=== PATIENT | female | born 1980 | race Caucasian/White ===

== ENCOUNTER 2016-05-30 12:13 | Emergency (ER) | payer MEDICAID ==
[~2016-05-30] VITALS: Ht 157.5 cm; Wt 67.7 kg
[~2016-05-30 12:13] MED LIST: BAC30OI TOP; BACTDS PO; CIPR500T4 PO; HYDR-906 PO; MECL25TA2 PO; NAPR-260 PO; ONDA4TAB14 PO; PHEN-537 PO
[2016-05-30 12:19] VITALS: Ht 157.5 cm; Wt 67.7 kg
[2016-05-30] MEDS ORDERED: ONDANSETRON (ODT) 4 MG TAB ODT STA (13:23)
[2016-05-30] MEDS ORDERED: ACETAMINOPHEN 500 MG TAB PO STA (13:23)
[2016-05-30] MEDS ORDERED: MECLIZINE 12.5 MG TAB PO ONE (13:30)
--- NOTE | 2016-05-30 14:25 | ERD ---
ER Documentation Chief Complaint Date/Time DATE: 05/30/16 TIME: 14:24 Chief Complaint recurrent vertigo, dizziness and nausea HPI Patient is a 35-year-old female who presents to the ED with recurrent vertigo, dizziness, nausea. She states that everytime she moves her head she "feels the room spinning." This has been going on on and off for 1 week. She states she has had this in the past, 6 months ago. She denies taking any new medications or prescription medication. She states that this is "exactly what she has had in the past." She states that she is not taking any medication for her symptoms as she ran out of her meclizine from before. She denies headache. She denies abdominal pain, diarrhea or constipation. She does state that she has nauseous but with no vomiting. Denies blurry vision. Denies neck pain or stiffness. Denies leg pain or swelling. ROS All systems reviewed and are negative except as per history of present illness. Medications Home Meds Active Scripts Ondansetron Hcl* (Zofran*) 4 Mg Tablet, 4 MG PO Q6H for NAUSEA AND/OR VOMITING, #30 TAB Prov:LAYO ROCKWELL PA-C 05/30/16 Meclizine Hcl* (Antivert*) 12.5 Mg Tab, 12.5 MG PO Q6H Y for DIZZINESS, #20 TAB Prov:LAYO ROCKWELL PA-C 05/30/16 Ondansetron (Ondansetron Odt) 4 Mg Tab.rapdis, 4 MG PO Q6H Y for NAUSEA AND/OR VOMITING, #6 TAB Prov:MINH SHANKAR DO 11/17/15 Naproxen* (Naprosyn*) 500 Mg Tablet, 500 MG PO BID Y for PAIN AND/OR INFLAMMATION, #12 TAB Prov:MINH SHANKAR DO 11/17/15 Hydrocodone/Acetaminophen ([place] 5-325 Tablet) 1 Each Tablet, 1 TAB PO Q6H Y for PAIN, #7 TAB Prov:MINH SHANKAR DO 11/17/15 Meclizine Hcl* (Antivert*) 25 Mg Tablet, 25 MG PO Q6H Y for DIZZINESS, #20 TAB Prov:MINH SHANKAR DO 11/17/15 Ciprofloxacin Hcl* (Ciprofloxacin Hcl*) 500 Mg Tablet, 500 MG PO BID, #6 TAB Prov:JENNIFER BISWAS DO 12/09/14 Phenazopyridine Hcl* (Pyridium*) 100 Mg Tab, 100 MG PO TID, #9 TAB Prov:JENNIFER BISWAS DO 12/09/14 Sulfamethoxazole-Trimethoprim* (Bactrim* DS) 800-160 Mg Tab, 1 TAB PO BID for 5 Days, TAB Prov:DRAKE COREA PA-C 11/21/14 Bacitracin* (Bacitracin Zinc Oint*) 28.35 Gm Oint, 1 APPLIC TOP BID, #1 TUB APPLI TO Prov:ESTHELA BRAR PA-C 09/21/14 Sulfamethoxazole-Trimethoprim* (Bactrim* DS) 800-160 Mg Tab, 1 TAB PO BID for 10 Days, TAB Prov:ESTHELA BRAR PA-C 09/21/14 Allergies Allergies: Coded Allergies: Penicillins (Unverified Allergy, Unknown, 05/30/16) PMhx/Soc History of Surgery: Yes (C section x2) Anesthesia Reaction: No Hx Neurological Disorder: No Hx Respiratory Disorders: No Hx Cardiac Disorders: No Hx Psychiatric Problems: No Hx Miscellaneous Medical Probl: Yes (Vertigo) Hx Alcohol Use: No Hx Substance Use: No Hx Tobacco Use: No Smoking Status: Never smoker FmHx Family History: No coronary disease, No diabetes, No other Physical Exam Vitals Vital Signs Date Time Temp Pulse Resp B/P Pulse Ox O2 Delivery O2 Flow Rate FiO2 05/30/16 15:50 98.3 61 18 124/71 100 Room Air 05/30/16 12:19 98.1 58 20 130/75 99 Physical Exam GENERAL: Well-developed, well-nourished female. Appears in no acute distress. HEAD: Normocephalic, atraumatic. EYES: Pupils are equally reactive bilaterally. EOMs grossly intact. No conjunctival erythema. No nystagmus. ENT: Moist mucous membranes. No uvula deviation. No kissing tonsils. No exudates. Bilateral TMs are nonerythematous, nonbulging. No mastoid tenderness NECK: Supple. No lymphadenopathy or thyromegaly. No meningismus. negative kernig. negative brudinski. LUNG: Clear to auscultation bilaterally. No rhonchi, wheezing, rales or coarse breath sounds. HEART: Regular rate and rhythm. No murmurs, rubs or gallops. NEUROLOGIC: Alert and oriented. Moving all four extremities. 5/5 strength in all extremities. Normal speech. Steady gait. Cranial nerves II through XII intact. Negative Romberg test. No ataxia. SKIN: Normal color. Warm and dry. No rashes or lesions. Capillary refill < 2 seconds Results 24 hrs Current Medications Medications (Trade) Dose Ordered Sig/Jesusita Route PRN Reason Start Time Stop Time Status Last Admin Dose Admin Ondansetron HCl (Zofran Odt) 4 mg ONCE STAT ODT 05/30/16 13:23 05/30/16 13:25 DC 05/30/16 13:34 Meclizine HCl (Antivert) 12.5 mg ONCE ONCE PO 05/30/16 13:30 05/30/16 13:31 DC 05/30/16 13:34 Acetaminophen (Tylenol Tab) 1,000 mg ONCE STAT PO 05/30/16 13:23 05/30/16 13:25 DC 05/30/16 13:34 Procedures/MDM ER COURSE: I kept the patient and/or family informed of laboratory and diagnostic imaging results throughout the emergency room course. MEDICATIONS Meclizine, Zofran, Motrin. Patient stated no adverse reaction and mild improvement in symptoms. PROCEDURES Ninfa maneuver. Patient stated mild improvement in symptoms. MEDICAL DECISION MAKING: This is a 35-year-old female who presents with dizziness. Vital signs were reviewed. Patient is afebrile. Patient is not hypoxic. Patient is not toxic or ill-appearing. Patient likely has benign positional vertigo as her symptoms are reproduced on examination and using the Ninfa maneuver. Patient states that this is exactly the same symptoms that she has had in the past. Denies any new trauma or triggering factor. I do not think a CT scan is warranted at this time as this is not a new onset situation. Her cranial nerves II through XII are intact bilaterally. After performing the Ninfa maneuver in the ER, patient stated mild improvement in symptoms. Low suspicion for intracranial hemorrhage, meningitis, intracranial mass, concussion, temporal arteritis, stroke, elevated intracranial pressure, seizure. Other diagnosis includes but is not limited to acoustic neuroma, Mnire's disease, labyrinthitis, benign positional vertigo. DISCHARGE: At this time, patient is stable for discharge and outpatient management with no new complaints during the ER course. Patient was sent home with meclizine, Zofran and instructions to do the Ninfa maneuver at home.. Patient will be discharged home with instructions to recheck for new or worsening symptoms such as fever, nausea, weakness, LOC and to follow up with primary care in the next 1 -2 days. Patient was advised to return to the ER for any new or worsening symptoms. Plan was discussed and patient and/or family understands and agrees. Home instructions were given. Departure Diagnosis: Primary Impression: Dizziness Condition: Stable LAYO ROCKWELL PA-C May 30, 2016 14:25
[2016-05-30] MEDS ORDERED: MECL12.574 PO (15:44)
[2016-05-30] MEDS ORDERED: ONDA4TAB8 PO (15:44)
[2016-05-30 15:50] VITALS: BP 124/71; PULSE 61; RESP 18; TEMP 98.3
== END 2016-05-30 15:50 | disposition home or self-care (01) ==
LOC: FTE 12:13
DX: R42 Dizziness and giddiness (principal); R11.0 Nausea
CPT/HCPCS: Z7610 ×3; 99283

== ENCOUNTER 2017-04-21 09:51 | Emergency (ER) | END 2017-04-21 11:10 | disposition home or self-care (01) ==

== ENCOUNTER 2017-05-24 11:12 | Inpatient (IN) | END 2017-05-27 17:45 | disposition home or self-care (01) | DRG 766 ==

== ENCOUNTER 2018-09-03 22:49 | Emergency (ER) | payer MEDICAID, OTHER ==
[~2018-09-03] VITALS: Ht 152.4 cm; Wt 65.4 kg
[~2018-09-03 22:49] MED LIST changes: +ACET500C5 PO; -BAC30OI TOP; -BACTDS PO; -CIPR500T4 PO; -HYDR-906 PO; +IBUP-1544 PO; -MECL25TA2 PO; -NAPR-260 PO; -ONDA4TAB14 PO; -PHEN-537 PO
[2018-09-03 22:52] VITALS: Ht 152.4 cm; Wt 65.4 kg
--- NOTE | 2018-09-03 23:05 | ERD ---
ER Documentation Chief Complaint Chief Complaint cough x 1 week HPI This is a 38-year-old female presents here in the emergency department with complaints of sore throat, productive cough. Stated that there is sore throat is about a week. Stated that her productive cough is about 3 days. LMP: Stated that was a week ago. G6, . Denies headache, head injury, loss of consciousness, dizziness, neck pain, neck stiffness, throat pain, difficulty swallowing, difficulty breathing lying flat, shoulder pain, chest pain, back pain, abdominal pain, nausea, vomiting, c onstipation, diarrhea, urinary symptoms, or possibility being , loss of bowel and bladder control, trauma, injury, falls, difficulty walking due to pain, numbness or tingling sensation, calf pain, recent travel, recent major surgery in the last 3 weeks, calf pain, recent long travel, recent exposure to any illness, recent antibiotic use in the last 3 months, fever, chills, seizures. Past medical history: Denies. Surgical history: x3. Social: Denies smoking, use of alcoholic beverages, use of illegal drugs. ROS All systems reviewed and are negative except as per history of present illness. Medications Home Meds Active Scripts Guaifenesin* (Robitussin*) 100 Mg/5 Ml Syrup, 200 MG PO Q4H PRN for COUGH, #4 OZ Prov:RAYMON RICHMOND 09/03/18 Azithromycin* (Zithromax*) 250 Mg Tablet, 250 MG PO .ZPACK DIRECTED, #6 TAB TAKE 500 MG (2 TABS) THE FIRST DAY THEN 250 MG (1 TAB) DAYS 2-5 Prov:RAYMON RICHMOND 09/03/18 Ibuprofen* (Motrin*) 800 Mg Tab, 800 MG PO Q6H PRN for PAIN AND OR ELEVATED TEMP, #30 TAB Prov:RASHIRAYMON PUENTE F 09/03/18 Ibuprofen* (Ibuprofen*) 800 Mg Tablet, 800 MG PO Q8, #60 TAB 0 Refills Prov:MARICARMEN BRYAN MD 05/26/17 Acetaminophen* (Tylophen*) 500 Mg Capsule, 1 CAP PO Q6H PRN for PAIN AND OR E LEVATED TEMP, #20 CAP Prov:LUIS MAN 04/21/17 Allergies Allergies: Coded Allergies: Penicillins (Unverified Allergy, Unknown, 05/30/16) PMhx/Soc History of Surgery: Yes (C section x2) Anesthesia Reaction: No Hx Neurological Disorder: No Hx Respiratory Disorders: No Hx Cardiac Disorders: No Hx Psychiatric Problems: No Hx Miscellaneous Medical Probl: Yes (Vertigo) Hx Alcohol Use: No Hx Substance Use: No Hx Tobacco Use: No Smoking Status: Never smoker Physical Exam Vitals Vital Signs Date Temp Pulse Resp B/P (MAP) Pulse Ox O2 O2 Flow FiO2 Time Delivery Rate 09/03/18 100.2 92 20 130/82 97 23:49 (98) 09/03/18 101.6 79 20 136/86 97 22:52 (103) Physical Exam Head: Atraumatic Eyes: Normal Conjunctiva ENT: Normal External Ears, Nose and Mouth. Bilateral ears: TMs are not e rythematous. No bleeding. No discharge. No hearing loss. No mastoid tenderness. Nose: There is no frontal or maxillary sinus tenderness palpation. Throat: Uvula is in midline and nondisplaced. Tonsils are +1 bilaterally without redness and without exudates. Tolerating secretions. Patent airway. Speaks full and clear sentences. No tripoding. Neck: Full range of motion. No meningismus. No nuchal rigidity. No signs of meningeal irritation. Resp: Clear to auscultation bilaterally. No accessory muscle use in breathing. Cardio: Regular rate and rhythm, no murmurs Abd: Soft, non tender, non distended. Normal bowel sounds. Negative العلي sign. Skin: No petechiae or rashes. Color appears normal for ethnicity. No skin tenting. No signs of severe dehydration. Back: No midline or flank tenderness Ext: No cyanosis, or edema Neur: Awake and alert. No neurological deficits. Psych: Normal Mood and Affect Results 24 hrs Current Medications Medications Dose Sig/Jesusita Start Time Status Last (Trade) Ordered Route PRN Stop Time Admin Dose Reason Admin Ibuprofen 800 mg ONCE ONCE 09/03/18 DC 09/03/18 (Motrin) PO 23:30 23:17 09/03/18 23:31 Guaifenesin 200 mg ONCE ONCE 09/03/18 DC 09/03/18 (Robitussin PO 23:30 23:17 Liquid Cup) 09/03/18 23:31 Procedures/MDM Diagnostic tests: Clinical exam. I offered diagnostic tests but patient strongly refused. Treatment: Motrin. Robitussin. Re-evaluation: Temperature responded to antipyretic medication. No episode of emesis in the emergency department. No accessory muscle use in breathing. Lung sounds are clear to auscultation. No neurological deficits. Stated that she feels much better this time and that she is ready to go home. Patient and family member stated that they are comfortable to go home. Differential diagnosis I have low suspicion for sepsis, meningitis, peritonsillar abscess, mastoiditis, pneumonia, pneumothorax, hemothorax, severe dehydration. Final diagnosis: Bronchitis. Prescription: Motrin. Azithromycin. Robitussin. Follow-up with PCP in the next 24-48 hours. Come back here in the emergency department for any new symptoms or any worsening symptoms. All questions and concerns were answered. Patient and family members verbalized understanding and agreed with plan of care. Hemodynamically stable on discharge. Departure Diagnosis: Primary Impression: Bronchitis Condition: Stable Additional Instructions: Follow-up with PCP in the next 24-48 hours. Come back here in the emergency department for any new symptoms or any worsening symptoms. RAYMON RICHMOND Sep 03, 2018 23:05
[2018-09-03] MEDS ORDERED: IBUP800T48 PO (23:19)
[2018-09-03] MEDS ORDERED: AZIT250T PO (23:19)
[2018-09-03] MEDS ORDERED: GUAI-637 PO (23:20)
[2018-09-03] MEDS ORDERED: GUAIFENESIN 20 MG/ML 5ML CUP PO ONE (23:30)
[2018-09-03] MEDS ORDERED: IBUPROFEN 800 MG TAB PO ONE (23:30)
[2018-09-03 23:49] VITALS: BP 130/82; PULSE 92; RESP 20
== END 2018-09-03 23:50 | disposition home or self-care (01) ==
LOC: FTE 22:49
DX: J40 Bronchitis, not specified as acute or chronic (principal)
CPT/HCPCS: Z7502; Z7610; 99283